=== PATIENT | male | born 1950 | race Caucasian/White ===

== ENCOUNTER 2019-09-19 21:25 | Outpatient (REF) | payer OTHER, SELFPAY ==
[2019-09-19 21:59] LABS: Abs Immature Grans 0.01 k/cumm (0.0-0.09); Absolute Basophil Count 0.02 k/cumm (0.0-0.2); Absolute Eosinophil Count 0.14 k/cumm (0.0-0.7); Absolute Lymphocyte Count 1.45 k/cumm (1.2-3.4); Absolute Monocyte Count 0.45 k/cumm (0.11-0.7); Absolute Neutrophil Count 2.77 k/cumm (1.2-6.7); Basophils % 0.4; Eosinophils % 2.9; HCT 46.6 % (40.0-50.0); Immature Grans % 0.2 %; Mean Corp. HGB Concentration 34.3 g/dL (32.0-36.0); Mean Corpuscular Hemoglobin 30.9 pg (27.0-33.0); Mean Platelet Volume 9.9 fL (8.0-11.0); Monocytes % 9.3; Neutrophils % 57.2; Platelet Count 261 x1000/uL (130-400); RBC 5.18 m/cumm (4.50-6.00); RBC Distribution Width 13.4 % (11.8-14.1); White Blood Cell Count 4.84 k/cumm (4.4-10.8)
[2019-09-19 22:13] LABS: ALT 85 U/L (16-63); AST 42 U/L (15-37); Albumin 4.4 g/dL (3.4-5.0); Alkaline Phosphatase 61 U/L (46-116); Anion Gap 11.4 mmol/L (3-11); BUN 18 mg/dL (7-18); Bilirubin, Total 0.6 mg/dL (0.2-1.0); CO2 28.6 mmol/L (21.0-32.0); CREATININE 0.74 mg/dL (0.70-1.30); Chloride 102 mmol/L (98-107); Glucose 91 mg/dL (74-106); Potassium 4.1 mmol/L (3.5-5.1); Sodium 142 mmol/L (136-145); TSH 4.35 uIU/mL (0.36-3.74); Total Protein 7.7 g/dL (6.4-8.2)
[2019-09-19 22:20] LABS: Vitamin D 25 Total 35.1 ng/ml (30-100)
[2019-09-23 13:44] LABS: IgA 272 mg/dL (85-499); Tissue Transglutaminase IgA <1.2 U/mL (<4.0)
== END 2019-09-19 21:45 ==
LOC: NCHCN 21:25
PROVIDERS: PCP Internal Medicine; Visit Provider Internal Medicine
DX: R19.7 Diarrhea, unspecified (principal)
CPT/HCPCS: 80053; 82306; 82784; 83516; 84443; 85025

== ENCOUNTER 2020-08-05 15:37 | Outpatient (REF) | payer OTHER, SELFPAY ==
[2020-08-05 22:41] LABS: ALT 53 U/L (16-63); AST 32 U/L (15-37); Albumin 4.2 g/dL (3.4-5.0); Alkaline Phosphatase 51 U/L (46-116); Anion Gap 7.9 mmol/L (3-11); BUN 19 mg/dL (7-18); Bilirubin, Total 0.6 mg/dL (0.2-1.0); CO2 29.1 mmol/L (21.0-32.0); CREATININE 0.86 mg/dL (0.70-1.30); Calcium 8.9 mg/dL (8.5-10.1); Calculated LDL 148 mg/dL (<100); Chloride 104 mmol/L (98-107); Cholesterol 224 mg/dL (<200); Glucose 89 mg/dL (74-106); HDL Cholesterol 49 mg/dL (40-60); Potassium 4.4 mmol/L (3.5-5.1); Sodium 141 mmol/L (136-145); Total Protein 7.3 g/dL (6.4-8.2); Triglyceride 135 mg/dL (<150)
[2020-08-05 23:07] LABS: FREE T4 1.06 ng/dL (0.76-1.46)
== END 2020-08-05 15:57 ==
LOC: NCHCN 15:37
PROVIDERS: PCP Internal Medicine; Visit Provider Internal Medicine
DX: E78.5 Hyperlipidemia, unspecified (principal); K76.0 Fatty (change of) liver, not elsewhere classified
CPT/HCPCS: 80053; 80061; 84439; 84443

== ENCOUNTER 2021-06-25 15:55 | Outpatient (REF) | payer MEDICARE, SELFPAY ==
[2021-06-25 16:23] LABS: ALT 43 U/L (16-63); AST 31 U/L (15-37); Albumin 4.3 g/dL (3.4-5.0); Alkaline Phosphatase 72 U/L (46-116); Anion Gap 8.9 mmol/L (3-11); BUN 24 mg/dL (7-18); Bilirubin, Total 0.7 mg/dL (0.2-1.0); CO2 30.1 mmol/L (21.0-32.0); CREATININE 0.8 mg/dL (0.70-1.30); Calcium 8.9 mg/dL (8.5-10.1); Calculated LDL 75 mg/dL (<100); Chloride 105 mmol/L (98-107); Cholesterol 157 mg/dL (<200); Glucose 113 mg/dL (74-106); HDL Cholesterol 65 mg/dL (40-60); Potassium 4.2 mmol/L (3.5-5.1); Sodium 144 mmol/L (136-145); Total Protein 7.4 g/dL (6.4-8.2); Triglyceride 85 mg/dL (<150)
== END 2021-06-25 15:56 | disposition home or self-care (01) ==
LOC: NCHCN 15:55
PROVIDERS: PCP Internal Medicine; Visit Provider Internal Medicine
DX: E78.5 Hyperlipidemia, unspecified (principal); K76.0 Fatty (change of) liver, not elsewhere classified
CPT/HCPCS: 80053; 80061

== ENCOUNTER 2022-07-06 15:40 | Outpatient (REF) | payer MEDICARE, SELFPAY ==
[2022-07-06 17:09] LABS: ALT 44 U/L (16-63); AST 32 U/L (15-37); Alkaline Phosphatase 56 U/L (46-116); Anion Gap 6.8 mmol/L (3-11); BUN 25 mg/dL (7-18); Bilirubin, Total 0.6 mg/dL (0.2-1.0); CO2 26.2 mmol/L (21.0-32.0); CREATININE 0.7 mg/dL (0.70-1.30); Calcium 8.8 mg/dL (8.5-10.1); Calculated LDL 148 mg/dL (<100); Chloride 102 mmol/L (98-107); Cholesterol 229 mg/dL (<200); Estimated GFR 98.51 (mL/min/1.73m2); Glucose 100 mg/dL (74-106); HDL Cholesterol 52 mg/dL (40-60); Potassium 4.1 mmol/L (3.5-5.1); Sodium 135 mmol/L (136-145); Total Protein 7.2 g/dL (6.4-8.2); Triglyceride 146 mg/dL (<150)
== END 2022-07-06 15:41 | disposition home or self-care (01) ==
LOC: NCHCN 15:40
PROVIDERS: PCP Internal Medicine; Visit Provider Internal Medicine
DX: E78.5 Hyperlipidemia, unspecified (principal); R79.89 Other specified abnormal findings of blood chemistry
CPT/HCPCS: 80053; 80061; 84153